=== PATIENT | male | born 1940 | race Caucasian/White ===

== ENCOUNTER 2020-04-29 07:45 | Inpatient (IN) | payer MEDICARE ==
[~2020-04-29 07:45] MED LIST: CLINDAMYCIN PHO30 ML OU; COMBIGAN EYE DRO5 ML EYEBOTH; PLAQUENIL200 MG PO; SINGULAIR10 MG PO; XALATAN2.5 ML OU; ZOCOR40 MG PO
[2020-04-29] MEDS ORDERED: PERCOCET 5-3251 EACH PO (08:28)
--- NOTE | 2020-04-29 16:12 | NUR ---
04/29/2020 Mr. Melgoza lives at home with spouse. No discharge needs are anticipated per Albertina Joyce, [employer].
[2020-04-30 06:50] LABS: BASOPHIL 0.1 % (0-2); EOSINOPHIL 0.2 % (0-7); HCT 32.9 % (42.0-52.0); HGB 10.5 g/dl (13.2-18.0); LYMPHOCYTE 9.4 % (15-48); MCH 31.5 pg (25.0-31.0); MCHC 31.9 g/dL (32.0-36.0); MCV 98.8 fL (78.0-100.0); MONOCYTE 7.8 % (0-12); MPV 9.3 fL (6.0-9.5); NEUTROPHIL 82.1 % (41-80); NRBC 0; PLT 128 K/uL (150-400); RBC 3.33 M/uL (4.70-6.00); RDW 12.6 % (11.5-14.0); WBC 9.2 K/uL (4.0-10.5)
[2020-04-30 07:08] LABS: BUN/CREAT RATIO (CALC) 28.1 RATIO; CREATININE 0.64 mg/dL (0.67-1.17); POTASSIUM 4.4 mmol/L (3.5-5.1)
[2020-04-30] MEDS ORDERED: FEOSOL325 MG PO (10:46)
[2020-04-30] MEDS ORDERED: ASPIRIN CHEWABL81 MG PO (10:46)
== END 2020-04-30 13:30 | disposition home or self-care (01) | DRG 483 ==
LOC: FSDC 07:45 → FMS 09:55
PROVIDERS: ADMIT Orthopaedic Surgery
PROC: 0LS30ZZ Reposition Right Upper Arm Tendon, Open Approach (ICD-10-PCS; 2020-04-29)
PROC: 0RRJ00Z Replacement of Right Shoulder Joint with Reverse Ball and Socket Synthetic Substitute, Open Approach (ICD-10-PCS; principal; 2020-04-29 10:30)
DX: M19.011 Primary osteoarthritis, right shoulder (principal); Z20.828 Contact with and (suspected) exposure to other viral communicable diseases; E78.5 Hyperlipidemia, unspecified; H40.9 Unspecified glaucoma; Z98.42 Cataract extraction status, left eye; Z98.41 Cataract extraction status, right eye; Z98.890 Other specified postprocedural states
CPT/HCPCS: 36415; 73020; 80048; 85025; 86850; 86900; 86901; 94010; 94762; 97162; 97166; 97530-GP; 97535; C1713; C1776; J0171; J0697; J1100; J1885; J2250; J2270; J2370; J2405; J2704; J2710; J2795; J3010; J7120; U0002